=== PATIENT | male | born 1940 | race Caucasian/White ===

== ENCOUNTER 2024-06-13 15:11 | Observation (INO) | payer MEDICARE, OTHER, SELFPAY ==
[2024-06-13] VITALS (8 sets, daily range): BP systolic 156–190; BP diastolic 70–122; BMI 27.3; BMI 26.6
[2024-06-13 11:27] LABS: % Basophils 0.3 % (0-2); % Eosinophils 1.1 % (0-6); % Immature Granulocytes 0.2 % (0-0.5); % Lymphocytes 18.1 % (20.5-51.1); % Neutrophils 71.3 % (42.2-75.2); Absolute Eosinophils 0.1 10^3/uL (0-0.7); Absolute Lymphocytes 1.2 10^3/uL (1.2-3.4); Absolute Monocytes 0.6 10^3/uL (0.1-0.6); Absolute Neutrophils 4.7 10^3/uL (1.4-6.5); Hematocrit 38.2 % (39.0-52.0); Hemoglobin 13.3 g/dL (13.0-18.0); Mean Corp Hgb Conc. 34.8 g/dL (33.0-37.0); Mean Corpuscular Hgb 31.1 pg (27.0-31.0); Mean Corpuscular Volume 89.5 fL (80.0-94.0); Mean Platelet Volume 9.2 fL (7.4-10.4); Nucleated Red Blood Cells % 0 % (-); Platelet Count 195 10^3/uL (130-400); Red Blood Cell Count 4.27 10^6/uL (4.70-6.10); Red Cell Dist. Width 13.1 % (11.5-14.5); White Blood Cell Count 6.6 10^3/uL (4.8-10.8)
[2024-06-13 11:47] LABS: ALT (SGPT) 48 U/L (0-50); AST (SGOT) 39 U/L (17-59); Albumin 3.8 g/dl (3.5-5.0); Alkaline Phosphatase 96 U/L (38-126); Blood Urea Nitrogen 13 mg/dl (9-20); Calcium 9.1 mg/dl (8.4-10.2); Carbon Dioxide 24 mmol/L (22-30); Chloride 103 mmol/L (98-107); Glucose 87 mg/dl (70-99); Potassium 4.2 mmol/L (3.5-5.1); Sodium 136 mmol/L (135-145); Total Bilirubin 0.7 mg/dl (0.2-1.3); Total Protein 6.7 g/dl (6.3-8.2); eGFR > 60.00
--- NOTE | 2024-06-13 12:09 | ED.GENMED ---
History of Present Illness
General
Chief Complaint: Weakness
Source: patient and family
Time Seen by Provider: 06/13/24 11:51
History of Present Illness
History of Present Illness:
This patient is an 84-year-old male who is visiting here from [place] with his daughter who is bedside. He says that on June 05 he developed a 'scratchy throat' associated with nasal congestion. He went to an urgent care and was diagnosed with
sinusitis and prescribed amoxicillin for about 10 days. He says by yesterday his sinusitis symptoms essentially resolved. However, with the symptoms since Monday he is also complaining of feeling 'lightheaded', to the point where he is having
difficulty walking. This has not improved, and is burdensome enough to him that he was afraid to get on a flight because he would not be able to walk in the airport without assistance. He describes it as feeling 'foggy' also described as feeling
'on a cruise ship', not a sensation that he might pass out. When asked about other associated symptoms he does note that he feels more clumsy than usual. While watching football yesterday he had a momentary episode of diplopia and he had to move
his head so that he could see the game better. This lasted a few minutes and then resolved. He denies numbness, tingling, focal weakness, severe headache, neck pain, chest pain, palpitations, dyspnea, abdominal pain, nausea, vomiting, or other
complaints.
Past History
Past History
ED Past Medical History: HTN, Hypercholesterolemia and Other (Prostate cancer incontinence)
ED Past Surgical History: Cardiac (Pacer placement) and Urological
Social History
Tobacco: Former smoker
Alcohol: None
Drug: None
Living: alone
Phy Exam
Physical Exam
Physical Exam:
GENERAL: Alert , in no apparent distress, pleasant
EYE: pupils equal and reactive, EOMI, right-sided fatigable nystagmus, no photophobia no vertical or rotational nystagmus no
NECK: Supple, no significant adenopathy.
ENT: o/p clr, mmm.
CARDIAC: Regular rate and rhythm .
LUNGS: Clear breath sounds bilaterally, no acute respiratory distress, no wheezes/rales/rhonchi
ABDOMEN: Soft, without focal tenderness, no r/g, no cvat
NEUROLOGICAL: Alert and oriented, motor 5 out of 5, sensory intact, [id number] normal, cranial nerves II through XII intact. Patient is able to walk but expresses great feeling of imbalance while doing so and is cautious. HI NTS exam
unremarkable except HIT--keeps focus with quick head movement
SKIN: Warm and dry, skin intact.
MUSCULOSKELETAL: No edema, well perfused.
PSYCH: Normal and appropriate interaction.
Course
Orders/Labs/Results
Orders:
Orders
06/13/24 09:54
Electrocardiogram (*1) Urgent
Reason for Study: Fatigue / Weakness
EKG- Treatment ONCE
06/13/24 11:10
Complete Blood Count/With Diff Urgent
Comprehensive Metabolic Panel Urgent
Glycohemoglobin (HgbA1c) Urgent
06/13/24 12:09
CT Head W/o Iv Contrast Urgent
Comment:
Reason For Exam: dizzy
06/13/24 13:14
Aspirin 325 mg PO NOW STA
06/13/24 13:51
Admit/Transfer Patient As Directed
Co-Sign Provider:
Level of Care: Inpatient admission
Assign to:: Telemetry
Physician / Group: [email or web address]
Diagnosis: Acute Dizziness/ vertigo and Diplopia ,acute balance dysfunction
Reason for Telemetry: CVA/TIA
Date to Stop Telemetry: 06/16/24
Time to Stop Telemetry: 11:00
Reason for Hospitalization: Acute Dizziness/ vertigo and Diplopia associated with recent sinusitis
Associated acute balance dysfunction
DDX: acute labyrinthitis vs Acute TEST BAKER TIA vs CVA event
Expected length of stay greater than two midnights?: Yes
ELOS- Estimated Length of Stay in days: 3
I certify the patient meets the requirements for IP care: Yes
06/13/24 13:53
Code Status As Directed
Resuscitation Status: Full Code
06/13/24 17:43
Acetaminophen [Tylenol/Feverall] 650 mg RECTAL Q4HPRN PRN
Acetaminophen [Tylenol] 650 mg PO Q4HPRN PRN
Guaifenesin [Mucinex] 600 mg PO BIDPRN PRN
HydrALAZINE [Apresoline] 5 mg IV Q4HPRN PRN
06/13/24 17:43
Case Management Consult ONCE
Case Management Consult: Discharge Planning
Comment: stroke/tia
DIETARY CONSULT Routine
Reason for Consult: stroke/TIA
Coagulating Operator Urgent
NIH Stroke Scale As Directed
Directions: Per protocol
Comment: every shift and with any change in condition or mental status
Neurological Checks As Directed
Frequency: q4h
Additional Instructions:: q4h x 24h upon admission to the floor, then qshift & with any change in condition
and mental status
Patient Education As Directed
Type: Stroke education packet
Comment: provide to patient and family
Vital Signs As Directed
Frequency: Per unit guidelines
Ot Eval And Treat Routine
Pt Eval And Treat Routine
Activity Level: With Assistance
Speech Therapy Eval & Treat Routine
DX Deep Vein Thrombosis Video Routine
06/13/24 18:00
Atorvastatin [Lipitor] 10 mg PO QPM
Metoprolol Xl [Toprol Xl] 12.5 mg PO QPM
06/13/24 20:00
Heparin 5,000 units SC Q12
06/14/24 06:00
Basic Metabolic Panel IN AM
Cardiovascular Evaluation IN AM
Complete Blood Count/No Diff IN AM
VerifyNow Aspirin IN AM
Pt on daily regimen OR been given initial dose of aspirin?: Yes
06/14/24 08:00
Aspirin Low Dose EC [Aspir Low (Enteric Coated)] 81 mg PO DAILY
Docusate Sodium [Colace] 100 mg PO DAILY
Lisinopril [Zestril] 5 mg PO DAILY
Tamsulosin [Flomax] 0.4 mg PO DAILY
06/16/24 11:00
DC Protocol for Telemetry ONCE
Abnormal Lab Results
06/13/24
11:10
RBC 4.27 L 10^6/uL
(4.70-6.10)
Hct 38.2 L %
(39.0-52.0)
MCH 31.1 H pg
(27.0-31.0)
Lymphocytes % 18.1 L %
(20.5-51.1)
06/13/24 11:10
06/13/24 11:10
Vital Signs
Initial and Last Documented VS:
Initial Vital Signs
Temp Pulse Resp BP Pulse Ox
98.3 F 94 18 182/122 97
06/13/24 09:47 06/13/24 09:47 06/13/24 09:47 06/13/24 09:47 06/13/24 09:47
Last Documented Vital Signs
Temp Pulse Resp BP Pulse Ox
98.2 F 63 16 176/97 95
06/14/24 07:12 06/14/24 07:12 06/14/24 07:12 06/14/24 07:12 06/14/24 07:12
*Critical Care Note
Total Time (30-74mins, 75-104mins- exclusive of procedures): Not Applicable
Update Note
Update Note:
Patient presents to the Emergency Department with ____'lightheadedness
Number and Complexity of Problems Addressed at the Encounter
� Chronic conditions affecting care:
� Acute Exacerbation and/or Progression of Chronic Illness:
� Differential Diagnosis includes: But not limited to peripheral vertigo such as BPPV, central vertigo such as CVA, dehydration, etc.
Amount and/or Complexity of Data to be Reviewed and Analyzed
� I performed an independent evaluation of and my interpretation is:
EKG: Read by me, atrial paced, no acute ischemia
CT: Read by radiology NAD
Xrays:
Laboratory Studies: Generally unremarkable
Other:
� Review of other/old records reveals:
� Clinical information was obtained by an independent historian: Daughter who is bedside
� Prescriptions/Medications Considered but not given:
� Further testing considered but not performed:
Risk of Complications and/or Morbidity or Mortality of Patient Management
� Social determinants of health affecting care:
� Discussion with other providers (PCP, Hospitalists, Consultants, etc):
� Escalation of care including admission/observation vs risk of discharge considered: 1:12 PM despite un[address] CT history and physical concerning to me for a posterior circulation process. Recommend admission, further
imaging, etc. Patient is not a candidate for acute intervention such as IAT or TNK given his symptoms began several days ago.
ED Attending Note
-
Portions of this chart may have been created with voice recognition software.� Occasional wrong word or��sound alike� substitutions may have occurred due to the inherent limitations of voice recognition software.
Discharge Plan
Departure
Patient Disposition: Admit
Date of Disposition: 06/13/24
Time of Disposition: 13:13
Admit to: Telemetry
Presentation/result/management discussed w/ accepting MD/DO: Hospitalist
Condition: Fair
Discharge Problem:
Dizziness
Interventions
Interventions:
*Risk Screen - Suicide Last Done: 06/13/24 18:31
*General Assessment Last Done: 06/13/24 12:27
*Neglect/Abuse Screening Last Done: 06/13/24 09:50
ED- Fall Risk Assessment Last Done: 06/13/24 12:27
*ED COVID-19 Vaccine History Last Done: 06/13/24 18:31
*Nursing Disposition Last Done: 06/13/24 17:35
ED- Cardiac Assessment Last Done: 06/13/24 12:27
ED- Neurological Assessment Last Done: 06/13/24 12:27
ED- Pulmonary Assessment Last Done: 06/13/24 12:27
Discharge Date and Time
Discharge Date/Time: 06/13/24 17:35
--- NOTE | 2024-06-13 13:44 | HPS.HSE ---
Family Physician
-
Family Physician:
Chief Complaint
-
lightheadedness and dizziness
History of Present Illness
84M visiting from from [place] with his daughter who is bedside seen at ER
- on June 05 he developed a 'scratchy throat' associated with nasal congestion.
- went to an urgent care and was diagnosed with sinusitis and prescribed amoxicillin for about 10 days. -
- sinusitis symptoms essentially resolved.
- since Monday he is also complaining of feeling 'lightheaded', to the point where he is having difficulty walking, has not improved
- is burdensome enough to him that he was afraid to get on a flight because he would not be able to walk in the airport without assistance.
- describes it as feeling 'foggy' also described as feeling 'on a cruise ship', not a sensation that he might pass out.
- When asked about other associated symptoms he does note that he feels more clumsy than usual.
- While watching football yesterday he had a momentary episode of diplopia and he had to move his head so that he could see the game better
- lasted a few minutes and then resolved.
ROS:
- denies numbness, tingling, focal weakness, severe headache, neck pain, chest pain, palpitations, dyspnea, abdominal pain, nausea, vomiting, or other complaints.
Medical History
Past Medical History
Past Medical History: Reports Cancer (prostate CA ), HTN, Hypercholesterolemia and Other
Past Surgical History: Reports Cardiac (PPM placement ) and Urological
Social History
Tobacco: Former Smoker
Alcohol: None
Drug: None
Living: Alone
Family History
Family History: Not pertinent
Allergies / Home Medications
Allergies reflects when Allergies were last updated in YouTube.
Home Medications with original date entered in YouTube
Allergy/Medication List:
Allergies
Allergy/AdvReac Type Severity Reaction Status Date / Time
adhesive tape Allergy Unknown Verified 06/13/24 09:53
Home Medications
Lactobac no.2-Bifidobac no.1-S. thermo 112.5 billion cell capsule (Visbiome) 1 cap PO DAILY 06/13/24
amoxicillin 875 mg-potassium clavulanate 125 mg tablet 1 tab PO BID 06/13/24
aspirin 81 mg tablet,delayed release 81 mg PO DAILY 06/13/24
docusate sodium 100 mg capsule (Colace) 100 mg PO DAILY 06/13/24
guaifenesin 600 mg tablet, extended release 12 hr (Mucinex) 600 mg PO BIDPRN PRN cough 06/13/24
lisinopril 5 mg tablet 5 mg PO DAILY 06/13/24
nyampfoa-ibdsbw-ceqpg extract 5 mg-6 mg-150 mg capsule (Fruit and Vegetable Daily) 1 cap PO DAILY 06/13/24
metoprolol succinate 25 mg tablet,extended release 24 hr (Toprol XL) 12.5 mg PO QPM 06/13/24
simvastatin 20 mg tablet (Zocor) 20 mg PO QPM 06/13/24
tamsulosin 0.4 mg capsule (Flomax) 0.4 mg PO DAILY 06/13/24
therapeutic multivitamin 1 tab PO DAILY 06/13/24
Review of Systems
-
Constitutional: Reports No Symptoms
EENT: Reports No Symptoms
Respiratory: Reports No Symptoms
Cardiac: Reports No Symptoms
Abdomen/GI: Reports No Symptoms
: Reports No Symptoms
Musculoskeletal: Reports No Symptoms
Skin: Reports No Symptoms
Neurological: Reports See HPI, Dizzy and Weakness
Endocrine: Reports No Symptoms
Hematologic/Lymphatic: Reports No Symptoms
Psych: Reports No Symptoms
Physical Exam
Vital Signs
Vital Signs
Temp Pulse Resp BP Pulse Ox
98.0 F 60 18 177/86 99
06/13/24 09:50 06/13/24 12:27 06/13/24 12:27 06/13/24 12:27 06/13/24 12:27
Physical Exam
General: Well Developed, Well Nourished and No Apparent Distress
HEENT: NormoCephalic, Moist mucous membranes and Atraumatic
Respiratory: Clear
Cardiac: S1/S2 and Regular Rhythm; No Murmur or Rub
GI: Soft, Non Tender, Non Distended and Normal Bowel Sounds; No Organomegaly
Rectal: Deferred by Provider
Musculoskeletal: No Clubbing, No Cyanosis and No Edema
Skin: No Rash
Neuro: Nonfocal/grossly intact
Laboratory Results
-
06/13/24 11:10
06/13/24 11:10
Laboratory Results
Total Bilirubin 0.7 mg/dl (0.2-1.3) 06/13/24 11:10
AST 39 U/L (17-59) 06/13/24 11:10
ALT 48 U/L (0-50) 06/13/24 11:10
Alkaline Phosphatase 96 U/L (38-126) 06/13/24 11:10
Data Reviewed
-
CT Scan: Report Reviewed by me
Lab Data: Labs Reviewed by me
Impression/Plan
-
Reviewed VS: Afebrile , BP 190/105 --> 175/85 HR 60 RR18
Data
WCC 6.6
Hgb 13.3
Plt 195
Unremarkable CMP
HCT: NEG
ASSESSMENT & PLAN
Acute Dizziness vs vertigo and Diplopia associated
Recent sinusitis on Amoxicillin
Associated acute balance dysfunction
NEG HCT
DDX: acute labyrinthitis vs Acute ACQUISITIONS ASSISTANT TIA vs CVA event
- S/P first dose of ASA 325 mg at ER
- c/w HOTEL VALET ATTENDANT baby ASA
- Hold of Brain MRI due to PPM till clarification for compatibility
- Repeat HCT in 24Hrs
- A1C, CVA evaluation
- ECHO
- supportive care for now
- PT/OT
- Neuro consult
Systolic HTN at ER
Benign HTN
- cont. lisinopril 5 mg daily
- Permissible BP up to 185/110
- IV Hydralazine PRN if SBP > 185, DBP > 110
Hypercholesterolemia
- cont HOTEL VALET ATTENDANT Simvastatin for now - Pending Lipids study
HX Prostate cancer
HX urine incontinence
DVT PPX; SCD
Full code
IP TLM
[2024-06-13] MEDS: ASPIRIN 325 MG PO (13:51)
[2024-06-13] MEDS: TOPROL XL 12.5 MG PO (18:25)
--- NOTE | 2024-06-13 19:29 | PTCARENOTE ---
pt walked from ED stretcher. tele connected- A-paced rhythm. AAOx3, pt very pleasant. NIH 0. VSS, BP elevated, Toporol given. Daughter at bedside. Pt says he has been having loose stools since starting amoxicillin for sinus infection. Pt and
daughter oriented to unit by this RN. Diet order put in for pt, no complaints at this time. Call jauregui within reach.
[2024-06-13] MEDS: HEPARIN 5000 UNITS SC (19:47)
[2024-06-13] MEDS: LIPITOR 10 MG PO (19:47)
[2024-06-13] MEDS: AUGMENTIN 875 MG/125 MG 1 TABLET PO (20:26)
[2024-06-14 03:40] VITALS: BP 181/100
[2024-06-14 07:12] VITALS: BP 176/97
[2024-06-14] MEDS: ASPIR LOW (ENTERIC COATED) 81 MG PO (08:22)
[2024-06-14] MEDS: AUGMENTIN 875 MG/125 MG 1 TABLET PO (08:22)
[2024-06-14] MEDS: HEPARIN 5000 UNITS SC (08:23)
[2024-06-14] MEDS: ZESTRIL 5 MG PO (08:23)
[2024-06-14] MEDS: FLOMAX 0.4 MG PO (08:23)
[2024-06-14 08:25] LABS: Hematocrit 37.9 % (39.0-52.0); Hemoglobin 13.2 g/dL (13.0-18.0); Mean Corp Hgb Conc. 34.8 g/dL (33.0-37.0); Mean Corpuscular Hgb 31.3 pg (27.0-31.0); Mean Corpuscular Volume 89.8 fL (80.0-94.0); Mean Platelet Volume 8.9 fL (7.4-10.4); Platelet Count 207 10^3/uL (130-400); Red Blood Cell Count 4.22 10^6/uL (4.70-6.10); White Blood Cell Count 6.5 10^3/uL (4.8-10.8)
[2024-06-14 08:53] LABS: Blood Urea Nitrogen 11 mg/dl (9-20); Carbon Dioxide 29 mmol/L (22-30); Chloride 102 mmol/L (98-107); Estimated Creatinine Clearance 59 ml/min; Glucose 129 mg/dl (70-99); HDL Cholesterol 70 mg/dl; LDL Cholesterol, Calculated 55 mg/dl; Potassium 4.1 mmol/L (3.5-5.1); Sodium 137 mmol/L (135-145); Total Cholesterol 138 mg/dl (50-199); Triglyceride 66 mg/dl (10-149); Very Low Density Lipoprotein 13 mg/dl (0-30); eGFR > 60.00
[2024-06-14 09:12] LABS: VerifyNow Aspirin 401 ARU
[2024-06-14 09:42] VITALS: BP 155/93; BP 158/79; BP 164/104; BP 183/93; PULSE 62; PULSE 72; PULSE 96; O2SAT 96
[2024-06-14 09:44] VITALS: BP 155/93; BP 158/79; BP 164/104; BP 183/93; PULSE 62; PULSE 72; PULSE 96; O2SAT 96
--- NOTE | 2024-06-14 10:47 | W.PN.HOSP.TC ---
Today's Communication/Plan
-
Discharge today
Assessment / Plan
Assessment / Plan
Physical Exam
General: Not in acute distress
HEENT: Normocephalic
Respiratory: Clear to Auscultation Bilaterally
Cardiac: S1/S2 and Regular Rhythm
GI: Soft, Non Tender, Non Distended and Normal Bowel Sounds
Musculoskeletal: No Cyanosis and No Edema
Skin: Warm. Dry.
Neuro: AAOx3. Cranial Nerves 2 to 12 grossly intact. Strength and sensation grossly intact bilaterally.

84M visiting from from [place] with his daughter who is bedside seen at ER
- on June 05 he developed a 'scratchy throat' associated with nasal congestion.
- went to an urgent care and was diagnosed with sinusitis and prescribed amoxicillin for about 10 days. -
- sinusitis symptoms essentially resolved.
- since Monday he is also complaining of feeling 'lightheaded', to the point where he is having difficulty walking, has not improved
- is burdensome enough to him that he was afraid to get on a flight because he would not be able to walk in the airport without assistance.
- describes it as feeling 'foggy' also described as feeling 'on a cruise ship', not a sensation that he might pass out.
- When asked about other associated symptoms he does note that he feels more clumsy than usual.
- While watching football yesterday he had a momentary episode of diplopia and he had to move his head so that he could see the game better
- lasted a few minutes and then resolved.
Assessment/Plan
Acute Dizziness
Associated acute balance dysfunction
Above symptoms suspected from Vertigo, possibly from recent antibiotics
- S/P first dose of ASA 325 mg at ER
- c/w STUDENT ACCOUNTS MANAGER baby ASA
- CT Head was unremarkable
- Brain MRI could not be done because MRI department could not obtain clearance from plastic press molder in order to perform MRI, next earliest they could try is on 06/16/24, but neurology mentioned patient can be discharged today as stroke/TIA is unlikely
- PT/OT
- Neuro consult recommendations appreciated: no changes to home medication regimen, follow-up with PCP
Hypertension
- Continue lisinopril 5 mg daily
- Continue home beta madyson
- Add new medication: Amlodipine 2.5 mg daily
Hypercholesterolemia
- Continue STUDENT ACCOUNTS MANAGER Simvastatin
Recent sinusitis on Amoxicillin
History of Prostate cancer
History of Urinary incontinence
DVT PPX; SCD
Full code
More than 30 minutes spent in discharge including
Final examination of the patient
Summarizing hospital stay
Instructions for continuing care to all relevant caregivers
Preparation of discharge records, prescriptions, and referral forms
Total time spent (in minutes): 40
Anticipated Discharge: Today
Subjective/Interval History
-
Date of Service: June 14, 2024
Patient was seen and examined. He reported that his dizziness had resolved.
Objective Data
-
Labs:
Laboratory Results
06/14/24
08:04
WBC 6.5
Hgb 13.2
Hct 37.9 L
Plt Count 207
Sodium 137
Potassium 4.1
Chloride 102
Carbon Dioxide 29
BUN 11
Creatinine 0.9
Glucose 129 H
Calcium 9.0
Vital Signs:
Vital Signs
Temp Pulse Resp BP Pulse Ox
98.2 F 63 16 176/97 95
06/14/24 07:12 06/14/24 07:12 06/14/24 07:12 06/14/24 07:12 06/14/24 07:12
I&O
06/13/24 06/14/24 06/15/24
06:59 06:59 06:59
Intake Total 120 / 120
Balance 120 / 120
[2024-06-14 11:28] VITALS: BP 175/97
[2024-06-14 15:53] VITALS: BP 137/70
--- NOTE | 2024-06-14 17:19 | W.DCSUMMARY ---
Discharge Summary
Discharge Data
Date of Admission: 06/13/24
Date of Discharge: 06/14/24
Total time spent discharging patient (in min): 40
-
Pending Results: No
Hospital Course
84 y/o male who presented with some brain fog, as being on a cruise ship, but no sensation that he might pass out. Patient received Aspirin loading dose in the emergency room. CT Head was unremarkable. Neurology was consulted, and case was discussed
with them, the challenge was that MRI department had a difficult time reaching patient's trap setter's office to clear him for MRI given his pacemaker, it would be unreasonable to keep the patient in the hospital for 2-3 more days just to wait for
MRI especially given that stroke or TIA was unlikely as discussed with the neurologist. Patient's symptoms resolved, and neurology mentioned that patient could be discharged. Low dose Amlodipine was added for better blood pressure control. His
symptoms were attributed to vertigo possibly from recent sinus infection and possibly from the antibiotics he took.
Discharge Plan
-
Patient Disposition: Home (Routine Discharge)
Discharge Diagnosis/Procedures: Acute Dizziness
Associated acute balance dysfunction
Above symptoms suspected from Vertigo, possibly from recent antibiotics
Orthostatic Hypotension
Hypertension
Hypercholesterolemia
Recent sinusitis on Amoxicillin
History of Prostate cancer
History of Urinary incontinence
Small bilateral pleural effusions
On Chest X-Ray: Rounded calcifications within the upper abdomen, probably gallstones.
Condition: Good
Diet: Low Fat, Low Cholesterol and Low Sodium
Driving Restrictions: Not until seen by your Dr
Activity Restrictions/Additional Instructions:
A new medication called Amlodipine has been prescribed (at the smallest dose of Amlodipine) to you to better help control your blood pressure.
Please see your PCP by 06/20/24 to follow-up on your high blood pressure and orthostatic hypotension. You also may need an outpatient echocardiogram -- discuss this with your primary care provider next week.
If you have further episodes of dizziness, chest pain, lightheadedness, abdominal pain, nausea, vomiting, numbness, tingling, weakness, shortness of breath or any other alarm symptom, please return to the emergency room for further evaluation.
Instructions: Vertigo (a type of dizziness), Orthostatic hypotension
Referrals:
UNKNOWN - PT DOES,NOT KNOW [Family Provider] -
Oscar Dimas MD [Active] - in six weeks (Small bilateral pleural effusions on chest x-ray in hospital)
Additional Discharge Medication Instructions: Amlodipine is a new medication.
Prescriptions:
New
amlodipine 2.5 mg tablet
2.5 mg PO DAILY Qty: 30 1RF
Continued
aspirin 81 mg Tablet,Delayed Release (Dr/Ec)
81 mg PO DAILY
docusate sodium [Colace] 100 mg Capsule
100 mg PO DAILY
amoxicillin-pot clavulanate 875-125 mg Tablet
1 tab PO BID
Fruit and Vegetable Daily 5-6-150 mg Capsule
1 cap PO DAILY
Visbiome 112.5 billion cell Capsule
1 cap PO DAILY
guaifenesin [Mucinex] 600 mg Tablet Extended Release 12hr
600 mg PO BIDPRN PRN (Reason: cough)
therapeutic multivitamin Tablet
1 tab PO DAILY
tamsulosin [Flomax] 0.4 mg Capsule
0.4 mg PO DAILY Qty: 30 0RF
simvastatin [Zocor] 20 mg Tablet
20 mg PO QPM Qty: 30 0RF
lisinopril 5 mg Tablet
5 mg PO DAILY Qty: 30 0RF
metoprolol succinate [Toprol XL] 25 mg Tablet Extended Release 24 Hr
12.5 mg PO QPM Qty: 30 1RF
Discharge Orders:
Discharge Patient (As Directed); Ordered 06/14/24
Ordered By: Galileo Rivera
Discharge Date and Time
Discharge Date/Time: 06/14/24 18:34
Print Language: GREEK
[2024-06-14] MEDS: PREVNAR 20 0.5 ML IM (18:13)
[2024-06-14] MEDS: TOPROL XL PO (18:20)
[2024-06-14] MEDS: LIPITOR PO (18:20)
== END 2024-06-14 18:34 | disposition home or self-care (01) ==
LOC: 3 WEST ACU 15:11
PROVIDERS: Emergency Medicine; ADMITTING PHYSICIAN Internal Medicine; ATTENDING PHYSICIAN Hospitalist; EMERGENCY PHYSICIAN Emergency Medicine
DX: R53.1 Weakness (principal); R09.81 Nasal congestion; R42 Dizziness and giddiness; R26.2 Difficulty in walking, not elsewhere classified; H53.2 Diplopia; J90 Pleural effusion, not elsewhere classified; R53.83 Other fatigue; R94.31 Abnormal electrocardiogram [ECG] [EKG]; E78.00 Pure hypercholesterolemia, unspecified; I10 Essential (primary) hypertension; Z85.46 Personal history of malignant neoplasm of prostate; Z87.891 Personal history of nicotine dependence; Z95.0 Presence of cardiac pacemaker; Z91.048 Other nonmedicinal substance allergy status; Z79.82 Long term (current) use of aspirin; Z23 Encounter for immunization
CPT/HCPCS: 70450; 71046; 80048; 80053; 80061; 83036; 85025; 85027; 85576; 90677; 92523; 93005; 97163; 97166; 99285; G0009; G0378

== ENCOUNTER 2024-06-17 07:05 | Emergency (ER) | payer MEDICARE, OTHER, SELFPAY ==
[2024-06-17 07:10] VITALS: BP 157/82
--- NOTE | 2024-06-17 09:28 | ED.GENMED ---
History of Present Illness
General
Chief Complaint: Musculo-Skeletal Complaint
Source: patient
Exam Limitations: none
Time Seen by Provider: 06/17/24 09:28
Nursing documentation reviewed up to this point in time: agreed with
History of Present Illness
History of Present Illness:
84 y/o M with h/o HTN, HLD, pacer
hip replacement R side
hre with L hip pain after fall last night 930 pm when he slipped off the bed
he landed directly on the L hip
he was able to get himself up and walk on it
he had no head strike and felt ok
slept well overnight
this morning when he got up, he was still able to walk but felt a little sore so he thuoght he should get checked out.
NOTHING TAKEN FOR PAIN
PAIN IS ZERO NOW
NO HEAD STRIKE, NECKP AIN, BACK PAIN, KNEE PAIN ETC
Past History
Past History
ED Past Medical History: HTN, Hypercholesterolemia and Other (Prostate cancer incontinence)
ED Past Surgical History: Cardiac (Pacer placement) and Urological
Social History
Tobacco: Former smoker
Alcohol: None
Drug: None
Living: alone
Phy Exam
Physical Exam
Physical Exam:
GENERAL: Alert , in no apparent distress
HEAD: NCAT
EYE: pupils equal and reactive, EOMs intact.
ENT: o/p clr, mmm. no hemotympanum
CARDIAC: Regular rate and rhythm, no edema
LUNGS: Clear breath sounds bilaterally, no acute respiratory distress, no wheezes/rales/rhonchi
ABDOMEN: Soft, without focal tenderness, no r/g, no cvat
NEUROLOGICAL: Alert and oriented, no focal neuro deficits, CN intact, 5/5 strength, sensation intact
SKIN: Warm and dry,
NO BRUISING
NORMAL INSEPCTION OF THE HIP AND KNEE/ANKLE
MUSCULOSKELETAL: L LATERAL HIP NORMAL INSPECTION
FULL ROM OF THE HIP
KNEE NORMAL
NV INTCT, GOOD PULSE
AMBULATES WELL WITHOUT ASSISTANCE
PSYCH: Normal and appropriate interaction.
Course
Orders/Labs/Results
Orders:
Orders
06/17/24 07:13
Hip, Left 2-3 Views [CR Hip - LT w/wo Pel 2-3 Vw*] Urgent
Comment:
Reason For Exam: slipped off bed at 930pn
Include a pelvis x-ray?: No
Vital Signs
Initial and Last Documented VS:
Initial Vital Signs
Temp Pulse Resp BP Pulse Ox
37.3 C 70 16 157/82 98
06/17/24 07:10 06/17/24 07:10 06/17/24 07:10 06/17/24 07:10 06/17/24 07:10
Last Documented Vital Signs
Temp Pulse Resp BP Pulse Ox
37.3 C 70 16 157/82 98
06/17/24 07:10 06/17/24 07:10 06/17/24 07:10 06/17/24 07:10 06/17/24 07:10
MDM/Problems Addressed
Differential Diagnosis Includes:
hip fracture, hip arthritis, contusion
MDM/Problems Addressed:
84 y/o M
previous R hip ORIF
from OOT
mehcanical fall last night onto L hip
concerned maybe it is fractured but was able to walk
no head strike
no other complaitns
nothing tkaen for pain
no pain unless walking
able to bear weight here for me well
no signs trauma
nontender to exam
full ROm of the hip
xray indep reviewed by me, neg
also d/w radiologist who agrees
tylenonll
cane for omfort as needed
return precautions
*Critical Care Note
Total Time (30-74mins, 75-104mins- exclusive of procedures): Not Applicable
ED Attending Note
-
Portions of this chart may have been created with voice recognition software.� Occasional wrong word or��sound alike� substitutions may have occurred due to the inherent limitations of voice recognition software.
Discharge Plan
Departure
Patient Disposition: Home (Routine Discharge)
Date of Disposition: 06/17/24
Time of Disposition: 09:49
Patient with high blood pressure during this ER visit?: No
Condition: Fair
Covid-19: Not Applicable
Discharge Problem:
Fall, Contusion of left hip
Instructions: Contusion (DC)
Prescriptions:
No Action
aspirin 81 mg Tablet,Delayed Release (Dr/Ec)
81 mg PO DAILY
docusate sodium [Colace] 100 mg Capsule
100 mg PO DAILY
amoxicillin-pot clavulanate 875-125 mg Tablet
1 tab PO BID
Fruit and Vegetable Daily 5-6-150 mg Capsule
1 cap PO DAILY
Visbiome 112.5 billion cell Capsule
1 cap PO DAILY
guaifenesin [Mucinex] 600 mg Tablet Extended Release 12hr
600 mg PO BIDPRN PRN (Reason: cough)
therapeutic multivitamin Tablet
1 tab PO DAILY
amlodipine 2.5 mg tablet
2.5 mg PO DAILY Qty: 30 1RF
tamsulosin [Flomax] 0.4 mg Capsule
0.4 mg PO DAILY Qty: 30 0RF
simvastatin [Zocor] 20 mg Tablet
20 mg PO QPM Qty: 30 0RF
lisinopril 5 mg Tablet
5 mg PO DAILY Qty: 30 0RF
metoprolol succinate [Toprol XL] 25 mg Tablet Extended Release 24 Hr
12.5 mg PO QPM Qty: 30 1RF
Referrals:
rogers tsallworth [Other]
Activity Restrictions/Additional Instructions:
YOUR XRAYS WERE REVIEWED BY ERADIOLOGIST AND THERE IS NO SIGN OF FRACTURE
TYLENOL EVERY 6 HOURS NEEDED FOR PAIN
ICE OFF AND ON
USE A CANE NEEDED FOR WALKING
RETURN FOR ANY CONCERNS.
Interventions
Interventions:
*Risk Screen - Suicide Last Done: 06/17/24 07:12
*Neglect/Abuse Screening Last Done: 06/17/24 07:12
*ED COVID-19 Vaccine History Last Done: 06/17/24 07:12
Discharge Date and Time
Print Language: FRENCH
== END 2024-06-17 10:17 | disposition home or self-care (01) ==
LOC: EMR 07:05
PROVIDERS: EMERGENCY PHYSICIAN Student in an Organized Health Care Education/Training Program
DX: S70.02XA Contusion of left hip, initial encounter (principal); W01.0XXA Fall on same level from slipping, tripping and stumbling without subsequent striking against object, initial encounter; I10 Essential (primary) hypertension; E78.00 Pure hypercholesterolemia, unspecified; Z85.46 Personal history of malignant neoplasm of prostate; Z87.891 Personal history of nicotine dependence; Z96.641 Presence of right artificial hip joint
CPT/HCPCS: 99283; 73502

== ENCOUNTER 2024-12-19 11:09 | Emergency (ER) | payer MEDICARE, OTHER, SELFPAY ==
[2024-12-19 11:19] VITALS: BP 144/79
--- NOTE | 2024-12-19 11:59 | ED.GENMED ---
History of Present Illness
General
Chief Complaint: Fall
Source: patient
Exam Limitations: none
Time Seen by Provider: 12/19/24 11:41
History of Present Illness
History of Present Illness:
84yoM with a history of sick sinus syndrome s/p pacemaker, atrial fibrillation on Eliquis, hypertension, hyperlipidemia, and prior R hip placement presenting via EMS for evaluation after a fall about 2.5 hours ago. Patient was walking on a carpeted
floor when he tripped over the carpet and fell. He landed directly on his right hip. He did not hit his head or lose consciousness. Patient is presenting with right hip pain and difficulty with weightbearing. He was able to ambulate but had to
use a walker. He sustained some bruising to the right elbow although has no pain there. He denies any headache, neck pain, back pain, shortness of breath, dizziness, abdominal pain, paresthesias.
Past History
Past History
ED Past Medical History: HTN, Hypercholesterolemia and Other (Prostate cancer incontinence)
ED Past Surgical History: Cardiac (Pacer placement) and Urological
Social History
Tobacco: Former smoker
Alcohol: None
Drug: None
Living: alone
Phy Exam
General Physical Exam
General Presentation: well appearing and no apparent distress
General Skin: warm and dry
General Habitus: normal
General Mental: alert
ENT Exam
ENT Exam: normocephalic and other (No external signs of head trauma. No cervical spine tenderness.)
Eye Exam
Eye Exam: PERRL
Pulmonary Exam
Pulmonary Exam: lungs clear, no respiratory distress and no crackles
Gastrointestinal Exam
Gastrointestinal Exam: non tender, soft and non distended
Neurological Exam
Neurological Exam: alert
[place] Coma Scale
Eye Opening: Spontaneous
Verbal Response: Oriented
Motor Response: Obeys Commands
GCS Total Score: 15
Musculoskeletal Exam
Musculoskeletal Exam: other (R hip is normal to inspection. There is mild tenderness to lateral hip. ROM is normal. 2+ PT pulse.)
Skin Exam
Skin Exam: warm/dry and other (Developing contusion to R elbow. ROM is normal without any bony tenderness.)
Psychiatric Exam
Psychiatric Exam: normal mood/affect
Course
Orders/Labs/Results
Orders:
Orders
12/19/24 11:22
Hip, Right 2-3 Views [CR Hip - RT w/wo Pel 2-3 Vw*] Urgent
Comment:
Reason For Exam: pain after a fall
Include a pelvis x-ray?: Yes
12/19/24 11:59
Ice Pack-Treatment DIRECTED
Location: R hip
Vital Signs
Initial and Last Documented VS:
Initial Vital Signs
Temp Pulse Resp BP Pulse Ox
97.8 F 60 20 144/79 97
12/19/24 11:19 12/19/24 11:19 12/19/24 11:19 12/19/24 11:19 12/19/24 11:19
Last Documented Vital Signs
Temp Pulse Resp BP Pulse Ox
97.8 F 60 20 144/79 97
12/19/24 11:19 12/19/24 11:19 12/19/24 11:19 12/19/24 11:19 12/19/24 12:00
MDM/Problems Addressed
Differential Diagnosis Includes:
84yoM here with R hip pain after a fall. Fell directly on hip. Adamantly denies head injury. Hx of prior hip replacement. R hip is normal to inspection and ROM is normal. RLE is neurovascularly intact. Differential diagnosis includes: hip fracture,
dislocation, soft tissue injury
X-rays obtained which are negative for fracture/dislocation and hardware is intact. Patient able to ambulate. He is stable for discharge. Advised f/u with PCP.
*Pulse Oximetry
SaO2: 97
Oxygen Mode of Delivery: Room air
Patient hypoxic: no (97%)
*Critical Care Note
Total Time (30-74mins, 75-104mins- exclusive of procedures): Not Applicable
ED Attending Note
-
Portions of this chart may have been created with voice recognition software.� Occasional wrong word or��sound alike� substitutions may have occurred due to the inherent limitations of voice recognition software.
Discharge Plan
Departure
Patient Disposition: Home (Routine Discharge)
Date of Disposition: 12/19/24
Time of Disposition: 12:37
Patient with high blood pressure during this ER visit?: Yes
Discharge Problem:
Ground-level fall, Acute pain of right hip
Instructions: Hip pain in adults, Preventing falls in adults
Prescriptions:
No Action
aspirin 81 mg Tablet,Delayed Release (Dr/Ec)
81 mg PO DAILY
docusate sodium [Colace] 100 mg Capsule
100 mg PO DAILY
amoxicillin-pot clavulanate 875-125 mg Tablet
1 tab PO BID
Fruit and Vegetable Daily 5-6-150 mg Capsule
1 cap PO DAILY
Visbiome 112.5 billion cell Capsule
1 cap PO DAILY
guaifenesin [Mucinex] 600 mg Tablet Extended Release 12hr
600 mg PO BIDPRN PRN (Reason: cough)
therapeutic multivitamin Tablet
1 tab PO DAILY
amlodipine 2.5 mg tablet
2.5 mg PO DAILY Qty: 30 1RF
tamsulosin [Flomax] 0.4 mg Capsule
0.4 mg PO DAILY Qty: 30 0RF
simvastatin [Zocor] 20 mg Tablet
20 mg PO QPM Qty: 30 0RF
lisinopril 5 mg Tablet
5 mg PO DAILY Qty: 30 0RF
metoprolol succinate [Toprol XL] 25 mg Tablet Extended Release 24 Hr
12.5 mg PO QPM Qty: 30 1RF
Referrals:
Maribel Vargas MD [Family Provider, Internal Medicine]
Activity Restrictions/Additional Instructions:
Apply ice to affected area. Take Tylenol as needed for pain.
Please follow-up with your family doctor. Return to the ER with any new or worsening symptoms.
Interventions
Interventions:
*Risk Screen - Suicide Last Done: 12/19/24 11:19
*General Assessment Last Done: 12/19/24 11:34
*Neglect/Abuse Screening Last Done: 12/19/24 11:19
*ED- Fall Risk Assessment Last Done: 12/19/24 11:34
*ED COVID-19 Vaccine History Last Done: 12/19/24 11:34
*Nursing Disposition Last Done: 12/19/24 12:55
ED-Musculoskeletal Assessment Last Done: 12/19/24 11:37
ED- Neurological Assessment Last Done: 12/19/24 11:37
ED-Skin Assessment Last Done: 12/19/24 11:38
Discharge Date and Time
Discharge Date/Time: 12/19/24 12:55
Print Language: TURKMEN
== END 2024-12-19 12:55 | disposition home or self-care (01) ==
LOC: EMR 11:09
PROVIDERS: EMERGENCY PHYSICIAN Student in an Organized Health Care Education/Training Program; FAMILY PHYSICIAN Internal Medicine Geriatric Medicine
DX: S50.01XA Contusion of right elbow, initial encounter (principal); M25.551 Pain in right hip; W01.0XXA Fall on same level from slipping, tripping and stumbling without subsequent striking against object, initial encounter; E78.00 Pure hypercholesterolemia, unspecified; I10 Essential (primary) hypertension; I48.91 Unspecified atrial fibrillation; Z79.01 Long term (current) use of anticoagulants; Z87.891 Personal history of nicotine dependence; Z95.0 Presence of cardiac pacemaker
CPT/HCPCS: 99283; 73502